=== PATIENT | male | born 1985 | race Caucasian/White ===

== ENCOUNTER 2016-12-15 17:08 | Emergency (ER) | payer MEDICAID ==
[~2016-12-15] VITALS: Ht 167.6 cm; Wt 79.5 kg
[2016-12-15 19:41] LABS: BASOPHILS % (AUTO) 0.2 % (0.0-2.0); EOSINOPHILS % (AUTO) 0.6 % (1.0-6.0); HEMATOCRIT 45.3 % (41-53); HEMOGLOBIN 15.2 g/dL (13.5-17.5); LYMPHOCYTES # (AUTO) 2.7 K/uL (1.0-4.8); LYMPHOCYTES % (AUTO) 28.2 % (22.0-44.0); MEAN CORPUSCULAR HEMOGLOBIN 29.9 pg (26.0-34.0); MEAN CORPUSCULAR HGB CONC 33.5 G/dL (31.0-37.0); MEAN CORPUSCULAR VOLUME 89 fL (80-100); MONOCYTES # (AUTO) 0.6 K/uL (0.1-1.0); MONOCYTES % (AUTO) 6.6 % (2.0-9.0); NEUTROPHILS # (AUTO) 6.2 K/uL (1.8-7.7); NEUTROPHILS % (AUTO) 64.4 % (40.0-70.0); PLATELET COUNT (AUTO) 223 K/uL (150-450); RED BLOOD CELL COUNT(AUTO) 5.09 MIL/uL (4.50-5.90); RED CELL DISTRIBUTION WIDTH 13.1 % (11.5-14.5); WHITE BLOOD COUNT (AUTO) 9.6 K/uL (4.5-11.0)
[2016-12-15 20:03] LABS: ANION GAP 9 mmol/L (8-16); CALCIUM, TOTAL 9.3 mg/dL (8.8-10.5); CARBON DIOXIDE 27 mmol/L (22-29); CHLORIDE 102 mmol/L (98-107); CREATININE 0.83 mg/dL (0.60-1.30); GLOMERULAR FILTR. RATE CALC > 60 mL/min (>60); POTASSIUM 4.6 mmol/L (3.5-5.1); SODIUM SERUM 138 mmol/L (136-145); UREA NITROGEN, BLOOD 18 mg/dL (7-18)
[2016-12-15 20:11] LABS: ALANINE AMINOTRANSFERASE 123 U/L (12-78); ALBUMIN 4.2 g/dL (3.4-5.0); ASPARTATE AMINOTRANSFERASE 55 U/L (15-37); BILIRUBIN,TOTAL 0.4 mg/dL (0.1-1.0); TOTAL PROTEIN, SERUM 8.4 g/dL (6.4-8.2)
[2016-12-15 21:14] VITALS: BP 125/79
== END 2016-12-15 21:18 | disposition home or self-care (01) ==
LOC: EMS 17:09
DX: M94.0 Chondrocostal junction syndrome [Tietze] (principal)
CPT/HCPCS: 93005; 99285

== ENCOUNTER 2022-05-08 21:52 | Emergency (ER) | payer MEDICAID ==
[~2022-05-08] VITALS: Ht 167.6 cm; Wt 72.7 kg
[2022-05-08 22:30] VITALS: BP 121/79
[2022-05-08] MEDS ORDERED: IBUPROFEN 600 MG TABLET PO ONE (22:30)
[2022-05-08] MEDS ORDERED: PERTUSS(ACELL),DIPH,TET VAC/PF 0.5 ML SYRINGE IM. ONE (22:30)
[2022-05-08] MEDS ORDERED: DOXYCYCLINE HYCLATE 100 MG TABLET PO ONE (22:30)
[2022-05-08] MEDS ORDERED: DOXY-354 PO (22:46)
== END 2022-05-08 22:54 | disposition home or self-care (01) ==
LOC: EMS 21:53
DX: T81.49XA Infection following a procedure, other surgical site, initial encounter (principal); X58.XXXA Exposure to other specified factors, initial encounter
CPT/HCPCS: 90471; 90715; 99283

== ENCOUNTER 2024-02-22 18:07 | Emergency (ER) | payer MEDICAID ==
[~2024-02-22] VITALS: Ht 165.1 cm; Wt 86.4 kg
[~2024-02-22 18:07] MED LIST: DOXY-354 PO
[2024-02-22 18:10] VITALS: BP 129/78; PULSE 100; RESP 18; TEMP 98
[2024-02-22] MEDS: IBUPROFEN 600 MG TABLET PO ONE (20:31)
[2024-02-22] MEDS: HYDROCODONE/ACETAMINOPHEN 5-325 MG TABLET PO ONE (20:31)
[2024-02-22] MEDS ORDERED: HYDR-4062 PO (20:34)
[2024-02-22] MEDS ORDERED: IBUP-1492 PO (20:36)
== END 2024-02-22 21:26 | disposition home or self-care (01) ==
LOC: EMS 18:07
DX: S52.122A Displaced fracture of head of left radius, initial encounter for closed fracture (principal); W19.XXXA Unspecified fall, initial encounter; Y93.66 Activity, soccer; Y92.89 Other specified places as the place of occurrence of the external cause; Y99.8 Other external cause status
CPT/HCPCS: 29105; 99284